=== PATIENT | male | born 1960 | race Caucasian/White ===

== ENCOUNTER 2016-09-18 07:22 | Day surgery (SDC) | payer OTHER ==
[2016-09-18 07:49] LABS: HEMOGLOBIN 14.5 g/dL (14.1-18.0); LYMPH # 1.6 K/mm3 (0.7-4.5); LYMPH % 25.9 % (10-50)
[2016-09-18 07:51] LABS: BUN 16 mg/dL (7-18)
[2016-09-18 07:53] LABS: GFR (ESTIMATED) 77 ML/MIN (>60)
--- NOTE | 2016-09-18 10:31 | RADIOLOGY REPORT PS360 ---
CARDIAC CATHETERIZATION DATE OF CATHETERIZATION:09/18/2016 8:19 AM PROCEDURES: 1. Left heart catheterization 2. Left ventriculogram 3. Selective coronary angiography INDICATION FOR TEST: 1. Abnormal Myoview 2. Risk factors for coronary artery disease 3. Chest pain consistent with angina pectoris Informed consent was obtained prior to the procedure. COMPLICATIONS: None ESTIMATED BLOOD LOSS: Less than 10 ml. TECHNIQUE: One percent lidocaine used to anesthetize the right anterior aspect of the wrist. The right radial artery was accessed via the Seldinger technique. A 6 [place] sheath was placed in the right radial artery. 2.5 mg of verapamil, 800 mcg of nitroglycerin and 5000 U Heparin were given through the arterial sheath. The Viktoriya catheter was also used to perform left heart catheterization and left ventriculography. At the end of the procedure the patient was transferred to the post-op holding area in stable condition for arterial sheath removal. ANGIOGRAPHIC RESULTS: 1. The left main artery normal 2. The left anterior descending artery normal 3. The circumflex artery normal 4. The right coronary artery dominant normal 5. The MARTINEZ ventriculogram reveals normal 65% 6. The left ventricular end-diastolic pressure 10 mmHg IMPRESSION: 1. Normal coronary arteries. 2. Normal ejection fraction 3. Normal left ventricular end-diastolic pressure PLAN: 1. Evaluation noncardiac chest pain 2. Risk factor modification
[2016-09-18 12:55] VITALS: BP 134/80
== END 2016-09-18 12:50 | disposition home or self-care (01) ==
LOC: CATHLAB 07:22
PROVIDERS: Internal Medicine
PROC: B2111ZZ Fluoroscopy of Multiple Coronary Arteries using Low Osmolar Contrast (ICD-10-PCS; 2016-09-18)
PROC: B2151ZZ Fluoroscopy of Left Heart using Low Osmolar Contrast (ICD-10-PCS; 2016-09-18)
PROC: 4A023N7 Measurement of Cardiac Sampling and Pressure, Left Heart, Percutaneous Approach (ICD-10-PCS; principal; 2016-09-18 09:45)
DX: R07.9 Chest pain, unspecified (principal); R94.39 Abnormal result of other cardiovascular function study
CPT/HCPCS: C1725; C1760; C1769; J1644; Q9967

== ENCOUNTER → 2017-03-19 | Outpatient (CLI) | payer OTHER ==
[~2017-03-19] MED LIST: ADULT LOW DOSE81 MG PO; ADVIL200 M2 PO; CELEBREX 200MG200 MG PO; EZETIMIBE10 M1 PO; LEVOCETIRIZINE D5 MG PO; LOSARTAN POTAS100 MG PO; OMEGA-31000 M2 PO; SUPER B-50 COM1 EACH PO
== END ==
LOC: RT 13:53
DX: J45.909 Unspecified asthma, uncomplicated (principal)

== ENCOUNTER → 2017-03-23 | Outpatient (CLI) | payer OTHER | LOC: RT 14:22 | DX: G47.33 Obstructive sleep apnea (adult) (pediatric) (principal); I10 Essential (primary) hypertension; R06.83 Snoring; E66.9 Obesity, unspecified ==